=== PATIENT | female | born 1950 | race Two or more races ===

== ENCOUNTER 2019-10-09 09:40 | Day surgery (SDC) | payer BC, OTHER ==
[2019-10-07 13:56] VITALS: BMI 26.2
[2019-10-09] MEDS ORDERED: PROPOFOL 20 ML ONE ×2 (09:48)
[2019-10-09] MEDS ORDERED: LIDOCAINE HCL/PF 2% SDV 5ML VIAL ONE (09:48)
[2019-10-09 10:53] VITALS: TEMP 98.2
[2019-10-09 11:17] VITALS: BP 110/62; PULSE 58
--- NOTE | 2019-10-13 16:08 | PATH ---
Surgical Pathology Report Patient Name: EMMA MCKNIGHT [facility]. Rec. #: [id number] /Age/Gender: 1950 (Age: 69) / F Account: [id number] Location: [facility] AMBULATORY Taken: 10/09/2019 Received: 10/09/2019 Reported: 10/13/2019 Physicians: Dima Hoffman M.D. Specimen(s) Received POLYP RECTUM Clinical History Abdominal pain Postoperative diagnosis: Hemorrhoids, colon polyp Final Diagnosis RECTUM, POLYP, BIOPSY: POLYPOID COLONIC MUCOSA WITH MILD LAMINA PROPRIA HEMORRHAGE. Electronically Signed Malika He M.D. Gross Description Received in formalin, labeled "biopsy polyp rectum" is a mcintyre, irregular portion of soft tissue measuring 0.2 cm. in greatest dimension. The specimen is submitted in toto in one cassette. 10/12/2019 [facility]10/12/2019
== END 2019-10-09 11:18 | disposition home or self-care (01) ==
LOC: FASU 09:40
PROVIDERS: ATTEND Internal Medicine Gastroenterology
PROC: 0DBP8ZX Excision of Rectum, Via Natural or Artificial Opening Endoscopic, Diagnostic (ICD-10-PCS; principal; 2019-10-09 10:20)
DX: D12.8 Benign neoplasm of rectum (principal); K64.8 Other hemorrhoids; R10.9 Unspecified abdominal pain; R19.4 Change in bowel habit
CPT/HCPCS: 88305-TC